=== PATIENT | female | born 1975 ===

== ENCOUNTER 2018-09-15 06:25 | Inpatient (IN) | payer BC ==
[2018-09-15 06:54] VITALS: BMI 23.0
[2018-09-15] MEDS ORDERED: Lidocaine 4% (Laryng-O-Jet) Kit MM ONE (07:33)
[2018-09-15] MEDS ORDERED: Succinylcholine Chloride 20 mg/ml Syr (5 ml) IV ONE (07:33)
[2018-09-15] MEDS ORDERED: Midazolam 2 MG/2 ML VIAL ONE (07:33)
[2018-09-15] MEDS ORDERED: Rocuronium 10 mg/ml (5 ml) ONE ×2 (07:33→10:47)
[2018-09-15] MEDS ORDERED: Propofol 10 mg/ml Inj (20 ML) ONE (07:33)
[2018-09-15] MEDS ORDERED: ePHEDrine 50 mg/ml Inj ONE (07:35)
[2018-09-15] MEDS ORDERED: SULFANILAMIDE (AVC) VAG CREAM VG ONE (07:35)
[2018-09-15] MEDS ORDERED: Methylene Blue 10 mg/mL(10ml) IV ONE (07:35)
[2018-09-15 07:48] LABS: BASO % 0.9 % (0.0-2.0); EOS # 0.1 K/uL (0.0-0.7); EOS % 2.5 % (0.0-4.0); HEMOGLOBIN 11.9 g/dL (12.0-16.0); LYMPH # 1.5 K/uL (1.0-4.3); LYMPH % 26.9 % (20.0-40.0); MEAN CELL VOLUME 87.7 fl (81.0-99.0); MEAN CORPUSCULAR HEMOGLOBIN 30.1 pg (27.0-31.0); MEAN CORPUSCULAR HGB CONC 34.4 g/dL (33.0-37.0); MEAN PLATELET VOLUME 9.1 fl (7.2-11.7); MONO # 0.5 K/uL (0.0-0.8); MONO % 9.3 % (0.0-10.0); NEUT # 3.3 K/uL (1.8-7.0); NEUT % 60.4 % (50.0-75.0); NRBC % 0.1 % (0.0-0.0); RBC 3.96 Mil/uL (3.80-5.20); RED CELL DISTRIBUTION WIDTH 12.7 % (11.5-14.5); WHITE BLOOD COUNT 5.5 K/uL (4.8-10.8)
[2018-09-15] MEDS ORDERED: Phenylephrine 10 mg/ml Inj ONE (07:48)
--- NOTE | 2018-09-15 08:32 | CP.PCM.HP ---
History of Present Illness - History of Present Illness History of Present Illness: 43 yo with Menorrhagia, Irregular menstrual cycle and chronic pelvic pain Failure of medical therapy Present on Admission - Present on Admission Any Indicators Present on Admission: Yes History of DVT/PE: No History of Uncontrolled Diabetes: No Urinary Catheter: No Decubitus Ulcer Present: No Decubitus Ulcer Stage: I History Surgical Site Infection Following: None - Notes: Notes:: S/P Robotic Hysterectomy/ Bilateral salpingectomy possible Oophorectomy/ cystoscopy and all necessary procedure . Review of Systems - Constitutional Constitutional: As Per HPI - Menstruation Menstruation: Cycle <21 Days, Heavy Menses, Abnormal Vaginal Bleeding, Dysmenorrhea Past Patient History - Infectious Disease Hx of Infectious Diseases: None - Tetanus Immunizations Tetanus Immunization: Unknown - Past Medical History & Family History Past Medical History?: Yes - Past Social History Smoking Status: Never Smoked Alcohol: None Drugs: Denies Home Situation {Lives}: With Family Domestic Violence: Negative - CARDIAC Hx Cardiac Disorders: No Hx Angina: No Hx Atrial Fibrillation: No Hx Cardia Arrhythmia: No Hx Congestive Heart Failure: No Hx Heart Attack: No Hx Heart Murmur: No Hx Heart Transplant: No Hx Hypercholesterolemia: No Hx Hypertension: No Hx Hypotension: No Hx Internal Defibrillator: No Hx Mitral Valve Prolapse: No Hx Pacemaker: No Hx Peripheral Edema: No Hx Peripheral Vascular Disease: No - PULMONARY Hx Respiratory Disorders: No - NEUROLOGICAL Hx Neurological Disorder: No - HEENT Hx HEENT Problems: No - RENAL Hx Chronic Kidney Disease: Yes Hx Kidney Stones: Yes Hx Pyelonephritis: Yes (09-16-16) - ENDOCRINE/METABOLIC Hx Endocrine Disorders: No - HEMATOLOGICAL/ONCOLOGICAL Hx Blood Disorders: No Hx Cancer: Yes (R breast CA had chemotherapy) - INTEGUMENTARY Hx Dermatological Problems: No - MUSCULOSKELETAL/RHEUMATOLOGICAL Hx Musculoskeletal Disorders: No Hx Falls: No - GASTROINTESTINAL Hx Gastrointestinal Disorders: No - GENITOURINARY/GYNECOLOGICAL Hx Genitourinary Disorders: No (C/S X 2) - PSYCHIATRIC Hx Psychophysiologic Disorder: No Hx Substance Use: No - SURGICAL HISTORY Hx Surgeries: Yes (C/S X2) Hx Section: Yes Other/Comment: liposuction. R breast tumor removal 2017 - ANESTHESIA Hx Anesthesia: Yes Hx Anesthesia Reactions: No Has any member of the family had a problem w/ anesthesia?: No Meds Allergies/Adverse Reactions: Allergies Allergy/AdvReac Type Severity Reaction Status Date / Time No Known Allergies Allergy Verified 09/15/18 08:13 Physical Exam - Constitutional Appears: Well - Head Exam Head Exam: ATRAUMATIC, NORMAL INSPECTION, NORMOCEPHALIC - Eye Exam Eye Exam: EOMI, Normal appearance, PERRL Pupil Exam: NORMAL ACCOMODATION, PERRL - ENT Exam ENT Exam: Mucous Membranes Moist, Normal Exam - Neck Exam Neck exam: Positive for: Normal Inspection - Respiratory Exam Respiratory Exam: Clear to Auscultation Bilateral, NORMAL BREATHING PATTERN - Cardiovascular Exam Cardiovascular Exam: REGULAR RHYTHM - GI/Abdominal Exam GI & Abdominal Exam: Normal Bowel Sounds, Soft. absent: Tenderness - Rectal Exam Rectal Exam: NORMAL INSPECTION - Exam Exam: Circumcision, NORMAL INSPECTION External exam: NORMAL EXTERNAL EXAM Speculum exam: NORMAL SPECULUM EXAM Bimanual exam: NORMAL BIMANUAL EXAM - Extremities Exam Extremities exam: Positive for: normal inspection - Back Exam Back exam: NORMAL INSPECTION - Neurological Exam Neurological exam: Alert, CN II-XII Intact, Normal Gait, Oriented x3, Reflexes Normal - Psychiatric Exam Psychiatric exam: Normal Affect, Normal Mood - Skin Skin Exam: Dry, Intact, Normal Color, Warm Results - Vital Signs Recent Vital Signs: Last Vital Signs Temp 97.9 F 09/15/18 07:45 Pulse 61 09/15/18 07:45 Resp BP 105/67 09/15/18 07:45 Pulse Ox - Labs Result Diagrams: 09/15/18 07:15 Labs: Laboratory Results - last 24 hr 09/15/18 09/15/18 07:15 07:15 WBC 5.5 RBC 3.96 Hgb 11.9 L Hct 34.7 MCV 87.7 MCH 30.1 MCHC 34.4 RDW 12.7 Plt Count 246 MPV 9.1 Neut % (Auto) 60.4 Lymph % (Auto) 26.9 [place]more % (Auto) 9.3 Eos % (Auto) 2.5 Baso % (Auto) 0.9 Neut # (Auto) 3.3 Lymph # (Auto) 1.5 Elmore # (Auto) 0.5 Eos # (Auto) 0.1 Baso # (Auto) 0.0 Blood Type B POSITIVE Antibody Screen Negative BBK History Checked No verified bt Assessment & Plan (1) Menorrhagia Status: Acute (2) Endometrial polyp Status: Acute (3) Chronic female pelvic pain Status: Acute Decision To Admit - . Bed Request Type: Operating Room Admitting Physician: Bobbi De Leon
[2018-09-15] MEDS ORDERED: Lactated Ringer's 1,000 ML IV ONE ×3 (09:00→11:45)
[2018-09-15] MEDS: Bupivacaine HCl 0.5% PF (30 ml) Inj ONE ×2 (09:32→09:40)
[2018-09-15] MEDS ORDERED: Dexamethasone 4 mg/1 ml ONE (09:36)
[2018-09-15] MEDS ORDERED: Neostigmine 1:1000 (1 mg/ml) Inj ONE (10:39)
[2018-09-15] MEDS ORDERED: HEMOSTATIC MATRIX 10 ML DIS.NEEDLE TOP ONE (11:05)
[2018-09-15] MEDS ORDERED: Oxycodone/Acetaminophen 5/325 mg Tab PO PRN (12:18)
[2018-09-15] MEDS ORDERED: HYDROmorphone 0.5 mg/0.5 ml ISec IVP PRN (12:28)
[2018-09-15] MEDS ORDERED: DiphenhydrAMINE 50 mg/ml Inj IVP PRN (12:28)
[2018-09-15] MEDS ORDERED: Lactated Ringer's 1,000 ML IV SCH (12:30)
[2018-09-15] MEDS ORDERED: Naloxone 0.4 mg/ml Inj (Adult) IVP PRN (12:31)
--- NOTE | 2018-09-15 12:31 | PCM.SURG1 ---
Surgeon's Initial Post Op Note - Surgeon's Notes Surgeon: Dr. De Leon Communications Executive: Dr Tommy Henao Type of Anesthesia: General Endo Pre-Operative Diagnosis: 43 yo with Menorrhagia, endometrial polyp, chronic pelvic pain , failure of medical therapy Operative Findings: Av uterus 12-14 with Large Right ovarian cyst , some adhesion Post-Operative Diagnosis: Same as above Operation Performed: Robotic Total hysterectomy, Right BSO, Left Salpingectomy, Cystoscopy and Labiaplasty Specimen/Specimens Removed: Uterus, cervix, R tube and ovary, Left Tube , Bilateral labial Estimated Blood Loss: EBL {In ML}: 50 Blood Products Given: N/A Drains Used: No Drains Post-Op Condition: Good Date of Surgery/Procedure: 09/15/18 Time of Surgery/Procedure: 12:31
[2018-09-15] MEDS: cefOXitin 2 GM in Sodium Chloride 0.9% 100 ML IVPB SCH (16:26)
[2018-09-15] MEDS: Lactated Ringer's 1,000 ML IV SCH (18:14)
[2018-09-16] MEDS: cefOXitin 2 GM in Sodium Chloride 0.9% 100 ML IVPB SCH ×2 (01:15→09:54)
[2018-09-16] MEDS: Lactated Ringer's 1,000 ML IV SCH (01:20)
--- NOTE | 2018-09-16 09:44 | CP.SDSHP ---
Same Day Surgery H & P - Allergies Allergies: Allergies No Known Allergies Allergy (Verified 09/15/18 08:13) - Physical Exam Vital Signs: Vital Signs 09/16/18 05:00 Temperature 98.6 F Pulse Rate 62 Respiratory 16 Rate Blood Pressure 91/54 L O2 Sat by Pulse 100 Oximetry Short Stay Discharge - Short Stay Discharge Admitting Diagnosis/Reason for Visit: N92.6/ N92.5/ N92.4/R10.2/ R10.30/ Progress Note/Discharge Note with Instructions: Patient doing well tolerating diet pain well controlled Vital signs stable afebrile Abdomen soft nontender nondistended Extremities no Homans Postoperative day 1 Patient cleared for discharge Vaginal packing removed Nothing per vagina, no heavy lifting Follow-up with Dr. De Leon in 1 week Prescription provided by Dr. De Leon
--- NOTE | 2018-09-16 11:28 | PROCN ---
PROCEDURE DATE: 09/15/18 PROCEDURE: Robotic-assisted hysterectomy, cystoscopy with stents. SURGEON: Bobbi De Leon MD. SQUAD BOSS: Valdemar Henao MD. I was the accounts receivable assistant in the procedure. I helped Dr. De Leon to obtain exposure. I helped with the hemostasis. I helped with extraction of specimen and closure of the patient. The procedure would not have been possible without my assistance. The rest of the dictation would be dictated by Dr. Bobbi De Leon. Valdemar Henao MD
[2018-09-16 14:22] LABS: HEMOGLOBIN 10.8 g/dL (12.0-16.0); MEAN CELL VOLUME 87.7 fl (81.0-99.0); MEAN CORPUSCULAR HEMOGLOBIN 30.3 pg (27.0-31.0); MEAN CORPUSCULAR HGB CONC 34.6 g/dL (33.0-37.0); RBC 3.55 Mil/uL (3.80-5.20); RED CELL DISTRIBUTION WIDTH 12.8 % (11.5-14.5); WHITE BLOOD COUNT 9.3 K/uL (4.8-10.8)
[2018-09-16 17:24] VITALS: BP 109/58; PULSE 70; RESP 17; TEMP 98.4; O2SAT 100
--- NOTE | 2018-09-22 08:35 | OP ---
PROCEDURE DATE: 09/15/18 PREOPERATIVE DIAGNOSIS: A 43-year-old female with history of menorrhagia, irregular menstrual period, failure of medical therapy as well as a history of breast cancer. POSTOPERATIVE DIAGNOSIS: A 43-year-old female with history of menorrhagia, irregular menstrual period, failure of medical therapy as well as a history of breast cancer with addition finding of adhesions. PROCEDURES: Robotic total hysterectomy with bilateral salpingo-oophorectomy, cystoscopy, and ureteral stents. ANESTHESIA: General. FINDINGS: Anteverted uterus, approximately 14 weeks' gestation with normal tubes and ovaries. Had multiple adhesions. SURGEON: Bobbi De Leon MD MECHANICAL PROCESS ENGINEER: Valdemar Henao MD The patient was informed of the risk factors, benefits, alternatives of the procedure which have included infection, bleeding, damage to the surrounding organs and tissues, complication from anesthesia, and possible . Prior to obtaining the consent, all questions were answered. After questions were answered and a consent was signed, she was then taken to the operating room where general anesthesia was found to be adequate. She was prepped and draped in a normal sterile fashion in standard fashion. Examination under anesthesia revealed a 14-week sized uterus. A weighted speculum was placed into the vagina. The cervix was grasped with a single-tooth tenaculum. The uterus was gently sounded with Sim dilators. In that particular, VCare apparatus was then placed into the uterus for uterine manipulation during the plan. OPERATIVE PROCEDURE: Attention was then turned towards the abdomen where a supraumbilical incision was made with a knife, and a Veress needle was applied into the peritoneal cavity. Peritoneal place was confirmed. The CO2 gas was insufflated for the creation of adequate intraperitoneal bubbles. A trocar was then placed under direct visualization. Assisted ports, arm 1, arm 2 and arm 3 of the robot were passed under direct visualization. Robot was on #8 trocar, the document control assistant port was on another #8 trocar. They were passed on the right and the left quadrants respectively under direct visualization. The uterus was then elevated. The round ligaments were identified and grasped with bilateral forceps dissector and incised with a hot shield. The ovaries were identified. The adhesions of the left ovary to the pelvic sidewall were then lysed with both sharp and blunt dissection grossly consistent with small force. Adequate mobilization of the left ovary, the infundibular ligament was identified. The broad ligament was entered over the medial border of the psoas muscle. Under direct visualization, the infundibulopelvic ligaments were then grasped with the bipolar forceps dissected and incised with a hot shield. The procedure was then repeated on the right hand. The right ovary was freely mobilized. The broad ligament was then entered, and the defect was then freed in the posterior broad ligament. The infundibulopelvic ligament was skeletonized, isolated, and grasped with the bipolar forceps under direct visualization with ureter being visualized. The pedicles were then dissected using the bipolar forceps and incised using the hot shield. The uterine vessels were then skeletonized. The vesicouterine peritoneum was identified, and the bladder was mobilized. The VCare was visualized protruding through the underlying vagina. The uterine vessel was then grasped with bipolar forceps dissected and incised and carried down to the VCare as the cardinal ligaments were sequentially transected with the Bovie cautery and unipolar hot shield. Upon adequate mobilization of the vascular pedicles, the vaginal cuff was then entered anteriorly. The groove of the VCare was identified. The cervix was carefully. Attention paid to the groove of the VCare. The specimen was then removed from it. Attachments were then taken through the vagina. The vaginal cuff was then reapproximated using interrupted [id number] sutures of 0 Vicryl using the laparoscope suturing technique. The abdomen was irrigated with normal saline where the vascular pedicles were visualized. Excellent hemostasis. The ports were then closed with 0 Vicryl. The skin was closed with a 3-0 Monocryl. The patient tolerated the procedure well. Estimated blood loss was approximately 50 mL. Now, attention was then turned to the vagina. The Arnold catheter was then placed. Cystoscopy was then performed. Bilateral ureters were identified and were patent. Upon completion, all instruments were removed from the vagina. Instrument and lap counts were correct x2. The patient tolerated the procedure quite well. She was then taken to recovery room in stable condition and instructed to follow up in the office in a week. Bobbi De Leon MD
== END 2018-09-16 14:05 | disposition home or self-care (01) | DRG 743 ==
LOC: H.OPSURG 06:25 → H.PEDS 14:24
PROVIDERS: ADMIT Obstetrics & Gynecology; ATTEND Obstetrics & Gynecology
PROC: 0UT0FZZ Resection of Right Ovary, Via Natural or Artificial Opening With Percutaneous Endoscopic Assistance (ICD-10-PCS; 2018-09-15)
PROC: 0T788DZ Dilation of Bilateral Ureters with Intraluminal Device, Via Natural or Artificial Opening Endoscopic (ICD-10-PCS; 2018-09-15)
PROC: 8E0W4CZ Robotic Assisted Procedure of Trunk Region, Percutaneous Endoscopic Approach (ICD-10-PCS; 2018-09-15)
PROC: 0UT94ZZ Resection of Uterus, Percutaneous Endoscopic Approach (ICD-10-PCS; principal; 2018-09-15 07:45)
PROC: 0UT7FZZ Resection of Bilateral Fallopian Tubes, Via Natural or Artificial Opening With Percutaneous Endoscopic Assistance (ICD-10-PCS; 2018-09-15 07:45)
DX: N84.0 Polyp of corpus uteri (principal); N83.01 Follicular cyst of right ovary; N83.11 Corpus luteum cyst of right ovary; N73.6 Female pelvic peritoneal adhesions (postinfective); N92.0 Excessive and frequent menstruation with regular cycle; G89.29 Other chronic pain; R10.2 Pelvic and perineal pain; Z85.3 Personal history of malignant neoplasm of breast; Z92.21 Personal history of antineoplastic chemotherapy; Z98.891 History of uterine scar from previous surgery; Z87.442 Personal history of urinary calculi